=== PATIENT | female | born 1955 | race Caucasian/White ===

== ENCOUNTER 2016-12-23 09:19 | Emergency (ER) | payer OTHER ==
[~2016-12-23 09:19] MED LIST: ASPIR 8181 MG PO; ASPIRIN81 MG; COREG3.125 MG PO; FISH OIL1 CAP; FOSAMAX35 MG; LISINOPRIL20 MG PO; MULTIVITAMIN1 TAB PO; SIMVASTATIN20 MG PO; SYNTHROID100 MCG PO; SYNTHROID50 MCG; TUMS PO; VIACTIV TA1 TAB.CHEW; VITAMIN B12; ZOFRAN ODT8 MG/TAB PO
[2016-12-23] MEDS ORDERED: VITAMIN D31000 UNI3 PO (09:48)
[2016-12-23] MEDS ORDERED: FOSAMAX70 M1 PO (09:49)
[2016-12-23] MEDS ORDERED: HYDROCODONE-HO473 ML PO (10:02)
== END 2016-12-23 10:17 ==
LOC: EDMED 09:19
DX: J04.0 Acute laryngitis (principal); J06.9 Acute upper respiratory infection, unspecified; I10 Essential (primary) hypertension; Z79.82 Long term (current) use of aspirin; Z79.899 Other long term (current) drug therapy